=== PATIENT | male | born 1965 | race Caucasian/White ===

== ENCOUNTER 2018-09-28 06:00 | Day surgery (SDC) | payer OTHER ==
[~2018-09-28 06:00] MED LIST: DIOVAN HCT 80-11 TAB; DIOVAN40 MG
== END 2018-09-28 11:40 | disposition home or self-care (01) ==
LOC: AMB-ENDOS 06:00
DX: D12.5 Benign neoplasm of sigmoid colon (principal); K52.89 Other specified noninfective gastroenteritis and colitis; Z12.11 Encounter for screening for malignant neoplasm of colon